=== PATIENT | male | born 1990 | race Caucasian/White ===

== ENCOUNTER 2016-04-18 10:45 | Emergency (ER) | payer OTHER ==
[~2016-04-18] VITALS: Ht 177.8 cm; Wt 115.0 kg
[~2016-04-18 10:45] MED LIST: CORT5TAB PO; DOXY100T PO; FORT10GE TD; LEVO137T2 PO; TAMS0.4C67 PO; VITA-13 PO; [UNRECOGNIZED DRUG - CODE] SQ
[2016-04-18 10:47] VITALS: BP 133/77; PULSE 99; RESP 16; TEMP 98.1; O2SAT 97
[2016-04-18] MEDS ORDERED: LEVO137T2 PO (11:06)
[2016-04-18] MEDS ORDERED: FORT10GE TOPICAL (11:06)
[2016-04-18] MEDS ORDERED: TAMS0.4C4 PO (11:06)
[2016-04-18] MEDS ORDERED: [UNRECOGNIZED DRUG - CODE] SQ (11:06)
[2016-04-18] MEDS ORDERED: ADDE20 PO (11:06)
[2016-04-18] MEDS ORDERED: CORT5TAB PO (11:06)
[2016-04-18 11:50] LABS: BLOOD, URINE NEG (NEG); COMMENT (UR) CULT NOT INDICATED; CULTURE IF INDICATED CULT NOT INDICATED; GLUCOSE,URINE NEG (NEG); KETONE, URINE NEG (NEG); MUCUS URINE MANY /lpf (OCC); NITRITE,URINE NEG (NEG); PH, URINE 5.5 (5.0-8.5); URINE COLOR YELLOW (YELLW/STRAW)
--- NOTE | 2016-04-18 12:37 | RADRPT ---
EXAM DATE/TIME: 04/18/2016 11:51 [place] COMPARISON: US TESTICLE W/DOPPLER, April 07, 2015, 14:31. INDICATIONS : Left scrotal pain. MEDICAL HISTORY : Left epididymitis. Nystagmus. Hypopituitarism. Bladder reflux. SURGICAL HISTORY : Tonsillectomy. Eye surgery. ENCOUNTER: Subsequent ACUITY: 1 day PAIN SCORE: 8/10 LOCATION: Bilateral scrotum. MEASUREMENTS: RIGHT TESTICLE: 3.8 x 2.7 x 2.2cm LEFT TESTICLE: 3.6 x 2.9 x 2.6cm FINDINGS: Bilateral testicles are normal and blood flow is demonstrated on both sides. Right epididymis is normal. Swollen and heterogeneous left epididymis again noted. There is less hyperemia than previous. A small left hydrocele persists. CONCLUSION: Left epididymitis modestly improved. Small hydrocele fluid persists. Bilateral testes are normal. Mike Rosenthal MD on April 18, 2016 at 12:34 Board Certified Radiologist. This report was verified electronically.
[2016-04-18] MEDS ORDERED: LEVA500T PO (12:45)
[2016-04-18] MEDS ORDERED: AZITHROMYCIN PWD FOR SUSP 1 GM PACKET PO ONE (12:45)
--- NOTE | 2016-04-18 12:45 | PD ---
HPI Chief Complaint: Complaint Time Seen by Provider: 11:11 Travel History International Travel<30 days: No Contact w/Intl Traveler<30days: No Traveled to known affect area: No History of Present Illness HPI 25 y/o male presents with left scrotal pain is been going on over the past couple of days. He states he has history of epididymitis. He denies prior history of sexually transmitted disease. He denies any penile discharge, dysuria or other concurrent complaints. He denies any trauma. He states last time he had this he got better after antibiotics but has not followed with the urologist. Quality is pressure. Severity is moderate. Pain is worse if you touch the area. PFSH Past Medical History Genitourinary: Yes (bladder reflux) Neurologic: Yes (hypopituitarism) Past Surgical History Eye Surgery: Yes Tonsillectomy: Yes Social History Alcohol Use: Yes (a couple of times a week) Tobacco Use: No Substance Use: No Allergies-Medications (Allergen,Severity, Reaction): Coded Allergies: Amoxicillin (Verified Allergy, Severe, rash, 04/07/15) Reported Meds & Prescriptions Reported Meds & Active Scripts Active Levaquin (Levofloxacin) 500 Mg Tab 500 Mg PO DAILY 10 Days Reported Fortesta Topical (Testosterone) 10 Mg/0.5 Gm Gel 70 Mg TOPICAL DAILY 10 mg/actuation Tamsulosin (Tamsulosin HCl) 0.4 Mg Cap 0.4 Mg PO HS Humatrope Inj (Somatropin) 24 Mg Inj 1 Injection SQ DAILY Levothyroxine (Levothyroxine Sodium) 137 Mcg Tab 137 Mcg PO DAILY Adderall (Amphetamine-Dextroamphetamine) 20 Mg Tab 20 Mg PO DAILY Avoid late evening doses. Space doses at least 4 to 6 hours if more than once/day dosing. Cortef (Hydrocortisone) 5 Mg Tab 5 Mg PO DAILY Take with food to decrease GI upset Review of Systems Except as stated in HPI: all other systems reviewed are Neg Physical Exam Narrative GENERAL: Well-nourished, well-developed patient. SKIN: Warm and dry. HEAD: Normocephalic and atraumatic. EYES: No injection or drainage. ENT: No nasal drainage noted. NECK: Supple, trachea midline. CARDIOVASCULAR: Regular rate and rhythm RESPIRATORY: No increased effort. No accessory muscle use. GASTROINTESTINAL: Abdomen soft, non-tender, nondistended. GENITOURINARY: Testes descended bilaterally without evidence of rotation. No lesions or erythema. No urethral discharge. Left scrotal area tender with movement NEUROLOGICAL: Awake and alert. Moves all extremities. Normal speech. Data Data Last Documented VS Vital Signs Date Time Temp Pulse Resp B/P Pulse Ox O2 Delivery O2 Flow Rate FiO2 04/18/16 11:07 17 04/18/16 10:47 98.1 99 133/77 97 Orders Us Testicles W Doppler (04/18/16 11:12) Urinalysis - C+S If Indicated (04/18/16 11:12) Gc And Chlamydia Pcr (04/18/16 11:12) Azithromycin Powd Pack (Zithromax Powd P (04/18/16 12:45) Labs Laboratory Tests Test 04/18/16 11:25 Urine Color YELLOW Urine Turbidity CLEAR Urine pH 5.5 Urine Specific [place] 1.016 Urine Protein NEG mg/dL Urine Glucose (UA) NEG mg/dL Urine Ketones NEG mg/dL Urine Occult Blood NEG Urine Nitrite NEG Urine Bilirubin NEG Urine Urobilinogen LESS THAN 2.0 MG/DL Urine Leukocyte Esterase NEG Urine Mucus MANY /lpf Microscopic Urinalysis Comment CULT NOT INDICATED MDM Medical Decision Making Medical Screen Exam Complete: Yes Emergency Medical Condition: Yes Medical Record Reviewed: Yes (past history confirmed) Interpretation(s) Last 24 hours Impressions Scrotum Ultrasound 04/18/16 1112 Signed Impressions: Service Date/Time: Monday, April 18, 2016 11:51 - CONCLUSION: Left epididymitis modestly improved. Small hydrocele fluid persists. Bilateral testes are normal. Mike Rosenthal MD Differential Diagnosis Epididymitis, orchitis, UTI, cyst.... Narrative Course Will check GC, UA, testicular ultrasound and reevaluate Ultrasound with left-sided epididymitis that has improved some, dose with 2 g of azithromycin given penicillin allergy and will sent home on Levaquin, given copy of ultrasound and advised urology follow-up, all questions answered. Patient knows that follow up is incumbent on them and to return to the emergency room immediately if new or worsening symptoms develop. Patient given strict return precautions, vitals reviewed and are normal, agrees to further workup as an outpatient. Diagnosis Primary Impression: Epididymitis, left Referrals: Primary Care Physician call for appointment Urologist call for appointment Patient Instructions: General Instructions Additional Instructions: Return as needed, Tylenol as needed for pain Med/Other Pt SpecificInfo: Prescription(s) given Scripts Levofloxacin (Levaquin)500 Mg Uxp883 Mg PO DAILY 10 Days Ref 0 Prov:Natasha Allen MD 04/18/16 Disposition: 01 DISCHARGE HOME Condition: Stable Natasha Allen MD Apr 18, 2016 12:45
[2016-04-18 13:09] VITALS: BP 135/64
[2016-04-18 17:13] LABS: CHLAMYDIA PCR NOT DETECTED (NOT DETECT); NEISSERIA PCR NOT DETECTED (NOT DETECT)
== END 2016-04-18 13:13 | disposition home or self-care (01) ==
LOC: NEPA 10:45
DX: N45.1 Epididymitis (principal); Z87.438 Personal history of other diseases of male genital organs; Z86.69 Personal history of other diseases of the nervous system and sense organs
CPT/HCPCS: 76870; 81001; 87491; 87591; 93975